=== PATIENT | female | born 1935 | race Caucasian/White ===

== ENCOUNTER → 2017-02-09 | Outpatient (CLI) | payer MEDICARE ==
[~2017-02-09] MED LIST: ACCUPRIL10 MG PO; MAXZIDE 75-501 EACH PO; METHOCARBAMOL500 MG PO; NAPROSYN500 MG PO; NEXIUM PO; OMEPRAZOLE40 M1 PO; SEE COMMENTS; VITAMIN D1000 UNIT PO
== END | disposition home or self-care (01) ==
LOC: CSSDAY 11:00
DX: M81.0 Age-related osteoporosis without current pathological fracture (principal); Z79.899 Other long term (current) drug therapy
CPT/HCPCS: 82310; 96372; J0897